=== PATIENT | female | born 1980 | race Caucasian/White ===

== ENCOUNTER 2018-01-06 20:53 | Emergency (ER) | payer MEDICAID, OTHER ==
[~2018-01-06] VITALS: Ht 170.2 cm; Wt 74.7 kg
[2018-01-06 20:55] VITALS: BP 146/95
[2018-01-06 21:28] LABS: BASOPHILS # (AUTO) 0.02 x10^3/uL (0-0.1); BASOPHILS % (AUTO) 0 % (0-1); EOSINOPHILS # (AUTO) 0.16 x10^3/uL (0-0.4); EOSINOPHILS % (AUTO) 2 % (1-7); LYMPHOCYTES # (AUTO) 1.82 x10^3/uL (1-3.4); LYMPHOCYTES % (AUTO) 20 % (22-44); MD NO; MEAN CORPUSCULAR HEMOGLOBIN 32.8 pg (27.0-34.8); MEAN CORPUSCULAR HGB CONC 33.7 g/dL (32.4-35.8); MEAN CORPUSCULAR VOLUME 97.1 fL (80-100); MONOCYTES # (AUTO) 0.61 x10^3/uL (0.2-0.8); MONOCYTES % (AUTO) 7 % (2-9); NEUTROPHILS # (AUTO) 6.69 x10^3/uL (1.8-6.8); NEUTROPHILS % (AUTO) 72 % (42-75); PLATELET COUNT 258 x10^3/uL (130-400); RED BLOOD COUNT 4.62 x10^6/uL (3.82-5.3)
[2018-01-06 21:39] LABS: ALBUMIN 3.8 g/dL (3.4-5.0); ANION GAP 6 mmol/L (5-15); CALCIUM 8.3 mg/dL (8.5-10.1); CHLORIDE 111 mmol/L (98-107); CREATININE 0.85 mg/dL (0.55-1.02)
[2018-01-08] MEDS ORDERED: FENTANYL PF 250 MCG/5ML ONE (11:15)
[2018-01-08] MEDS ORDERED: MIDAZOLAM 1 MG/ML, 2ML ONE (11:15)
== END 2018-01-06 22:32 | disposition home or self-care (01) ==
LOC: ED 22:26
DX: O20.0 Threatened abortion (principal); Z3A.01 Less than 8 weeks gestation of pregnancy
CPT/HCPCS: 36415; 76856; 80048; 82040; 84702; 85025; 86901; 99285

== ENCOUNTER 2018-01-08 10:51 | Day surgery (SDC) | payer MEDICAID ==
[~2018-01-08] VITALS: Ht 170.2 cm; Wt 72.6 kg
[~2018-01-08 10:51] MED LIST: BUPIVACAINE/PF 0.25% ONE; EPINEPHRINE 1 MG/ML, 1ML ONE; SILVER NITRATE STICK TP ONE; THROMBIN 5,000 UNIT VIAL TP ONE
[2018-01-08] MEDS ORDERED: NO MEDS PER PT (11:00)
[2018-01-08 11:01] VITALS: BP 134/97
[2018-01-08] MEDS ORDERED: LACTATED RINGERS 1,000 ML IV SCH (11:01)
[2018-01-08 11:16] LABS: BASOPHILS # (AUTO) 0.01 x10^3/uL (0-0.1); BASOPHILS % (AUTO) 0 % (0-1); EOSINOPHILS # (AUTO) 0.08 x10^3/uL (0-0.4); EOSINOPHILS % (AUTO) 1 % (1-7); LYMPHOCYTES # (AUTO) 1.37 x10^3/uL (1-3.4); LYMPHOCYTES % (AUTO) 15 % (22-44); MD NO; MEAN CORPUSCULAR HEMOGLOBIN 32.5 pg (27.0-34.8); MEAN CORPUSCULAR VOLUME 95.5 fL (80-100); MONOCYTES # (AUTO) 0.44 x10^3/uL (0.2-0.8); MONOCYTES % (AUTO) 5 % (2-9); NEUTROPHILS # (AUTO) 7.28 x10^3/uL (1.8-6.8); NEUTROPHILS % (AUTO) 79 % (42-75); PLATELET COUNT 250 x10^3/uL (130-400); RED BLOOD COUNT 4.63 x10^6/uL (3.82-5.3); RED CELL DISTRIBUTION WIDTH 12.9 % (9.6-15.2)
[2018-01-08 11:22] LABS: HCG UR SG 1.021 (1.003-1.030)
[2018-01-08 11:28] LABS: ANION GAP 6 mmol/L (5-15); CALCIUM 8.3 mg/dL (8.5-10.1); CHLORIDE 109 mmol/L (98-107); CREATININE 0.85 mg/dL (0.55-1.02)
[2018-01-08] MEDS ORDERED: ONDANSETRON 2MG/ML, 2ML IVPush PRN (12:00)
[2018-01-08] MEDS ORDERED: ACETAMINOPHEN 325 MG TABLET PO PRN (12:00)
[2018-01-08] MEDS ORDERED: EPHEDRINE 50 MG/ML, 1ML IVPush PRN (12:00)
[2018-01-08] MEDS ORDERED: MEPERIDINE/PF 25MG/0.5ML IVPush PRN (12:00)
[2018-01-08] MEDS ORDERED: FENTANYL PF 100 MCG/2ML IV PRN (12:00)
[2018-01-08] MEDS ORDERED: PROMETHAZINE 25 MG/ML, 1ML IV PRN (12:00)
[2018-01-08] MEDS ORDERED: morphine SULFATE 10 MG/ML, 1ML IV PRN (12:00)
[2018-01-08] MEDS ORDERED: LABETALOL 5MG/ML, 20ML IV PRN (12:00)
[2018-01-08] MEDS ORDERED: hydrALAzine 20 MG/ML, 1ML IV PRN (12:00)
[2018-01-08] MEDS ORDERED: METOPROLOL 1 MG/ML, 5ML IV PRN (12:00)
[2018-01-08] MEDS ORDERED: ALBUTEROL SULFATE 2.5 MG/3 ML NPPB PRN (12:00)
[2018-01-08] MEDS ORDERED: OXYcodone 5 MG/5 ML ORAL.SOL UDC PO PRN (12:00)
[2018-01-08] MEDS ORDERED: ACETAMINOPHEN 650 MG/20.3 ML UDC ONE (12:35)
[2018-01-08] MEDS ORDERED: OXYcodone 5 MG/5 ML ORAL.SOL UDC ONE (12:36)
[2018-01-08] MEDS ORDERED: FENTANYL PF 100 MCG/2ML ONE (12:36)
[2018-01-08] MEDS ORDERED: CEFOTETAN 2 GM ONE (15:29)
[2018-01-08] MEDS ORDERED: PROPOFOL 10 MG/ML, 20ML ONE (15:29)
[2018-01-08] MEDS ORDERED: GLYCOPYRROLATE 0.2MG/1ML, 5ML ONE (15:29)
[2018-01-08] MEDS ORDERED: ONDANSETRON 2MG/ML, 2ML ONE (15:29)
[2018-01-08] MEDS ORDERED: KETOROLAC 30 MG/1 ML ONE (15:29)
[2018-01-08] MEDS ORDERED: NEOSTIGMINE 1 MG/ML, 10ML ONE (15:29)
[2018-01-08] MEDS ORDERED: DEXAMETHASONE 4 MG/ML, 1ML ONE (15:29)
[2018-01-08] MEDS ORDERED: ROCURONIUM 10 MG/ML,10ML ONE (15:29)
== END 2018-01-08 16:40 | disposition home or self-care (01) ==
LOC: OUT 10:51 → MERGE 12:15 → OUT 16:40
PROVIDERS: ATTEND Obstetrics & Gynecology
DX: O00.102 Left tubal pregnancy without intrauterine pregnancy (principal); Z98.890 Other specified postprocedural states
CPT/HCPCS: 36415; 59151; 80048; 81025; 85025; 86850; 86900; 88305; J0171; J1100; J1885; J2405; J2704; J2710; J3010; J3490; J7120; J2250; S0074